=== PATIENT | female | born 1945 | race Caucasian/White ===

== ENCOUNTER → 2021-08-17 | Outpatient (CLI) | payer OTHER ==
[~2021-08-17] MED LIST: ASPI81CH PO; CALCAVITD PO; CETI10 PO; CETI5 PO; CHOL10002 PO; CIPR500 PO; CIPRO500 MG PO; CLIN1TS TOP; CONESTTC PV; DESO.25TC TOP; FEXO60 PO; FISH1000 PO; FLUSAL1005 INH; HYDACE5 PO; LEVFLO500 PO; ONDA4 PO; OXYC5 PO; PHENA200 PO; PROM25 PO; PROM25S PR; Percocet 5-3251 EACH PO; RXHYDACE PO; SERT100 PO; SERT25 PO; SERT50 PO; SIMV20 PO; SULTRIDS PO; TAMS.4ER PO; TEARS NATURALE OP; TRAM50 PO; Zofran Odt4 MG SL; Zofran Odt8 MG SL
[2021-08-17 13:24] LABS: Hematocrit 35.4 % (33.0-51.0); Hemoglobin 11.4 g/dL (11.5-16.0)
[2021-08-17 13:28] LABS: Albumin, Blood 3.5 g/dL (3.4-5.0); Anion Gap 2 mmol/L (6-16); Blood Urea Nitrogen 26 mg/dL (8-24); Bun/Creatinine Ratio 15.1 (12.0-20.0); CO2, Blood 29 mmol/L (21-32); Calcium, Blood 8.9 mg/dL (8.5-10.1); Chloride, Blood 108 mmol/L (98-108); Creatinine, Blood 1.72 mg/dL (0.40-1.00); Glomerular Filtration Rate 30 (60-); Glucose, Blood 84 mg/dL (70-99); Phosphorus, Blood 3.3 mg/dL (2.5-4.9); Sodium, Blood 139 mmol/L (136-145)
[2021-08-17 13:52] LABS: Protein, Urine Random <5.0 mg/dL (0.0-11.9); Protein/Creat Ratio, Ur Random Unable to Calculate
== END | disposition home or self-care (01) ==
LOC: LAB SHORT 10:15 → LAB 10:15
PROVIDERS: Internal Medicine Nephrology
DX: N18.4 Chronic kidney disease, stage 4 (severe) (principal); E55.9 Vitamin D deficiency, unspecified
CPT/HCPCS: 36415; 80069; 82306; 82570; 83970; 84156; 85014; 85018

== ENCOUNTER 2023-02-05 08:17 | Observation (INO) | payer OTHER ==
[2023-02-05] VITALS (17 sets, daily range): BP systolic 98–145; BP diastolic 64–79
[~2023-02-05] VITALS: Ht 160 cm; Wt 96.8 kg
[~2023-02-05 08:17] MED LIST changes: +CALCIUM CIT 311 EAC7 PO; +CODACE30 PO; +LOSA25 PO; +VITAMIN D310 MC4 PO
--- NOTE | 2023-02-05 09:39 | NUR ---
Ambulatory in Day Surgery History, Chart, Medications and Allergies reviewed before start of procedure. Pre-Op teaching done. Pt verbalizes understanding. Patient States Post-Procedure ride home has been arranged with Daughter Kyleigh.
--- NOTE | 2023-02-05 14:17 | NUR ---
ARRIVAL TO SURGICAL UNIT ASSESSMENT CHARTED. PLEASANT & UPBEAT DISPITE ARRIVING TO HER ROOM HOLDING AN EMESIS BAG. COOL WASHCLOTH GIVEN & PT HAS BEEN MEDICATED IN OR & PACU. REPORTS NAUSEA IS IMPROVED BUT STILL LINGERING. ONLY ICE WATER & CRACKERS GIVEN AT THIS TIME.
--- NOTE | 2023-02-05 18:13 | NUR ---
SHIFT SUMMARY PT HAS DONE WELL POST OP. PAIN MANAGED w/ PO MEDS. TOLERATING DIET. SURG SITE & DRAIN WNL. UP TO VOID. PLEASANT & COOPERATIVE.
[2023-02-06 02:10] VITALS: BP 105/70
--- NOTE | 2023-02-06 06:46 | NUR ---
POD 1 S/P LEFT MASTECTOMY. PT VSS T/O NIGHT, INCISION CDI. CASSIE PUT OUT 20 ML SS DRNG. PT REP PAIN MINIMAL, DECLINED NEED FOR PAIN MEDS. PT DANIEL PO, DENIED N/V, IS VOIDING URINE W/O DIFFICULTY. PT UP IN ROOM W/SBA, DANIEL WELL.
[2023-02-06 07:10] VITALS: BP 132/74
--- NOTE | 2023-02-06 10:33 | NUR ---
Pt. is awake in bed and welcomes my visit. Pt. is pleasant but verbalizes that she has no concerns and also verbalizes expectation that she will be discharged today. Pt. verbalized gratitude fo rthe spiritual care visit.
[2023-02-06] MEDS ORDERED: OXYC5 PO (11:22)
--- NOTE | 2023-02-06 11:43 | NUR ---
DISCHARGE CHEST BINDER, SPECIMEN CUPS, ALCOHOL SWABS, & SCRIPT SENT w/ PT. PAIN WELL MANAGED. EATING, DRINKING, VOIDING. FEELS COMFORTABLE w/ DC. ESCORTED OUT VIA WC.
== END 2023-02-06 11:49 | disposition home or self-care (01) ==
LOC: NM 08:17 → ORSCMMR 08:19 → NM 09:29 → SURS 09:29 → NM 09:30 → SURS 13:58
PROVIDERS: ADMIT Surgery
PROC: 0HBU0ZZ Excision of Left Breast, Open Approach (ICD-10-PCS; principal; 2023-02-05 10:30)
DX: C50.812 Malignant neoplasm of overlapping sites of left female breast (principal); I12.9 Hypertensive chronic kidney disease with stage 1 through stage 4 chronic kidney disease, or unspecified chronic kidney disease; N18.9 Chronic kidney disease, unspecified; Q87.19 Other congenital malformation syndromes predominantly associated with short stature; M19.90 Unspecified osteoarthritis, unspecified site
CPT/HCPCS: 38792; 88305; 88307; A9270; A9520; J0690; J1100; J1790; J2250; J2270; J2405; J2704; J2765; J3010; J7120; Q9968

== ENCOUNTER → 2023-10-25 | Outpatient (CLI) | payer OTHER ==
[2023-10-25 08:57] LABS: Source, Urine Clean Catch
[2023-10-25 12:33] LABS: Appearance, Urine Hazy (Clear); Bilirubin, Urine Neg (Neg); Blood, Urine 4+ (Neg); Glucose Qualitative, Urine Neg (Neg); Ketones, Urine Neg (Neg); Leukocyte Esterase, Urine 3+ (Neg); Nitrite, Urine Pos (Neg); Protein, Urine Neg (Neg); Urobilinogen, Urine NORM (Normal)
[2023-10-25 12:39] LABS: Color, Urine Pale Yellow (P-Yellow)
[2023-10-25 12:40] LABS: Amorphous Light (0-Heavy); Bacteria Many /hpf; Squamous Epithelial Cells Few /hpf (Few); White Blood Cells, Urine TNTC /hpf (0-5)
== END | disposition home or self-care (01) ==
LOC: LAB 08:56 → LAB SHORT 08:56
PROVIDERS: Nurse Practitioner Family
DX: R30.0 Dysuria (principal)
CPT/HCPCS: 81001; 87077; 87086; 87186

== ENCOUNTER 2024-05-10 15:01 | Emergency (ER) | payer OTHER ==
[~2024-05-10] VITALS: Ht 170.2 cm; Wt 59.0 kg
[2024-05-10 15:34] LABS: BASOPHILS ABSOLUTE AUTO 0.07 K/mm3 (0.00-0.23); BASOPHILS PERCENT AUTO 1 % (0-2); EOSINOPHILS ABSOLUTE AUTO 0.17 K/mm3 (0.00-0.68); EOSINOPHILS PERCENT AUTO 2 % (0-6); Hematocrit 35.8 % (33.0-51.0); Hemoglobin 12.7 g/dL (11.5-16.0); IMMATURE GRAN ABSOLUTE AUTO 0.05 K/mm3 (0.00-0.10); IMMATURE GRAN PERCENT AUTO 1 % (0-1); LYMPHOCYTES ABSOLUTE AUTO 2.42 K/mm3 (0.84-5.20); LYMPHOCYTES PERCENT AUTO 22 % (21-46); MONOCYTES ABSOLUTE AUTO 0.93 K/mm3 (0.16-1.47); MONOCYTES PERCENT AUTO 8 % (4-13); Mean Corpuscular HGB Conc 35.5 g/dL (31.5-36.5); Mean Corpuscular Volume 85 fL (80-100); NEUTROPHILS ABSOLUTE AUTO 7.45 K/mm3 (1.96-9.15); NEUTROPHILS PERCENT AUTO 67 % (41-73); Platelet Count 452 K/mm3 (150-400); RDW Coefficient Variation 12.9 % (11.7-14.2); RDW Standard Deviation 39.3 fL (35.1-46.3); Red Blood Cell Count 4.23 M/mm3 (3.80-5.20); White Blood Cell Count 11.09 K/mm3 (4.00-11.30)
[2024-05-10] MEDS ORDERED: METF500 PO (15:38)
[2024-05-10 15:57] LABS: Albumin, Blood 3.4 g/dL (3.4-5.0); Albumin/Globulin Ratio 0.8 (0.8-1.8); Bilirubin, Total 1.1 mg/dL (0.1-1.0); Bun/Creatinine Ratio 35.3 (12.0-20.0); Calcium, Blood 8.7 mg/dL (8.5-10.1); Creatinine, Blood 1.33 mg/dL (0.40-1.00); Globulin, Blood 4.4 g/dL (2.2-4.0); Potassium, Blood 3.4 mmol/L (3.5-5.5); Total Protein, Blood 7.8 g/dL (6.4-8.2)
[2024-05-10] MEDS ORDERED: TraZODone HCl 50 MG Tab PO PRN (16:10)
[2024-05-10] MEDS ORDERED: Prochlorperazine Edisylate 10 mg Vial IV PRN (16:10)
[2024-05-10] MEDS ORDERED: FLU VACC TS2024-25(6MOS UP)/PF 45 MCG/0.5 ML SYRINGE IM SCH (16:10)
[2024-05-10] MEDS ORDERED: Magnesium Hydroxide Conc 10 ML UDC PO PRN (16:10)
[2024-05-10] MEDS ORDERED: HydrALAZINE HCl 20 MG / ML 1ML Vial IV PRN (16:15)
[2024-05-10] MEDS ORDERED: Bisacodyl 10 MG Supp PR PRN (16:15)
[2024-05-10 16:49] LABS: Source, Urine Clean Catch
[2024-05-10 16:55] LABS: Appearance, Urine Clear (Clear); Bilirubin, Urine Neg (Neg); Blood, Urine 1+ (Neg); Glucose Qualitative, Urine 3+ (Neg); Ketones, Urine Neg (Neg); Leukocyte Esterase, Urine 3+ (Neg); Nitrite, Urine Neg (Neg); Protein, Urine 1+ (Neg); Urobilinogen, Urine NORM (Normal)
[2024-05-10 16:59] LABS: Color, Urine Pale Yellow (P-Yellow)
[2024-05-10 17:04] LABS: Bacteria Mod /hpf; Red Blood Cells, Urine 0-2 /hpf (0-2); Squamous Epithelial Cells Few /hpf (Few)
[2024-05-10 18:00] VITALS: BP 173/79
[2024-05-10] MEDS ORDERED: Lactobacil 2-S.Thermo-Bifido 1 1 Cap PO SCH (21:00)
[2024-05-10] MEDS ORDERED: Famotidine 20 MG Tab PO SCH (21:00)
[2024-05-11] MEDS ORDERED: Enoxaparin 40 MG/0.4 ML SYR SC SCH (09:00)
[2024-05-11] MEDS ORDERED: Clopidogrel Bisulfate 75 MG Tab PO SCH (09:00)
[2024-05-11] MEDS ORDERED: Aspirin 81 MG Chew PO SCH (09:00)
== END 2024-05-10 18:34 | disposition other institution (70) ==
LOC: ER 15:01
PROVIDERS: Emergency Medicine; Hospitalist
DX: I63.9 Cerebral infarction, unspecified (principal); J45.909 Unspecified asthma, uncomplicated; N39.0 Urinary tract infection, site not specified; N10 Acute pyelonephritis; N20.0 Calculus of kidney; J18.9 Pneumonia, unspecified organism; Z79.899 Other long term (current) drug therapy; Z79.891 Long term (current) use of opiate analgesic
CPT/HCPCS: 70450; 80053; 81001; 82947; 85025; A9270

== ENCOUNTER → 2024-05-17 | Outpatient (CLI) | payer OTHER ==
[~2024-05-17] MED LIST changes: +METF500 PO
== END ==
LOC: LAB SHORT 11:07 → LAB 11:07
DX: R30.0 Dysuria (principal)
CPT/HCPCS: 87077; 87086; 87186